=== PATIENT | male | born 1980 | race Caucasian/White ===

== ENCOUNTER 2016-08-18 13:05 | Emergency (ER) | payer OTHER ==
[~2016-08-18] VITALS: Ht 180.3 cm; Wt 81.6 kg
[~2016-08-18 13:05] MED LIST: FLEXERIL10 MG PO; Motrin,Rufen800 MG PO; NKHM; VICODIN 5/500 505 MG PO; VOLTAREN50 M1 PO
== END 2016-08-18 15:32 | disposition home or self-care (01) ==
LOC: ED 13:05
DX: S92.512A Displaced fracture of proximal phalanx of left lesser toe(s), initial encounter for closed fracture (principal); F17.200 Nicotine dependence, unspecified, uncomplicated; Z88.0 Allergy status to penicillin; Z88.1 Allergy status to other antibiotic agents; X58.XXXA Exposure to other specified factors, initial encounter; Y93.01 Activity, walking, marching and hiking; Y92.89 Other specified places as the place of occurrence of the external cause; Y99.8 Other external cause status